=== PATIENT | female | born 1965 ===

== ENCOUNTER 2022-01-10 09:49 | Emergency (ER) | payer BC, MEDICAID ==
[2022-01-10] MEDS ORDERED: Fluorescein 1 MG Ophth Strip EYELF ONE (10:52)
[2022-01-10] MEDS ORDERED: Tetracaine HCl/PF 0.5% 4 ML Bottle EYERT ONE (10:52)
== END 2022-01-10 11:40 | disposition home or self-care (01) ==
LOC: DL.ED 09:49
DX: H11.32 Conjunctival hemorrhage, left eye (principal); H04.129 Dry eye syndrome of unspecified lacrimal gland; E66.9 Obesity, unspecified; Z68.37 Body mass index [BMI] 37.0-37.9, adult; Z91.018 Allergy to other foods; Z88.6 Allergy status to analgesic agent
CPT/HCPCS: 99283